=== PATIENT | male | born 1990 | race Caucasian/White ===

== ENCOUNTER 2018-01-13 15:25 | Emergency (ER) | payer BC, OTHER ==
[2018-01-13 15:48] VITALS: BP 127/74
[2018-01-13] MEDS ORDERED: Ibuprofen TAB* 600 MG PO ONE (15:59)
--- NOTE | 2018-01-13 16:00 | UC ---
Upper Extremity HPI - HPI Summary HPI Summary: pt was involved in a restraint about 2pm while at work. when they fell forward, pt injured his R wrist. notes pain and swelling to the back of his R wrist. - History of Current Complaint Onset/Duration: Sudden Onset Pain Intensity: 5 Aggravating Factor(s): Movement Alleviating Factor(s): Nothing Associated Signs And Symptoms: Positive: Swelling <Mary Trevino - Last Filed: 01/13/18 15:52> <Chantel Garcia - Last Filed: 01/13/18 17:05> - History of Current Complaint Chief Complaint: UCUpperExtremity Stated Complaint: RT WRIST COMP Time Seen by Provider: 01/13/18 15:44 - Allergies/Home Medications Allergies/Adverse Reactions: Allergies Allergy/AdvReac Type Severity Reaction Status Date / Time seasonal Allergy Congestion Uncoded 01/13/18 15:44 Home Medications: Home Medications NK [No Home Medications Reported] 01/13/18 [History Confirmed 01/13/18] PMH/Surg Hx/FS Hx/Imm Hx Previously Healthy: Yes - Surgical History Surgical History: Yes Surgery Procedure, Year, and Place: left knee MCL and PCL - Family History Known Family History: Positive: None, Respiratory Disease - Social History Occupation: Employed Full-time Lives: With Family Alcohol Use: Occasionally Substance Use Type: None Smoking Status (MU): Light Every Day Tobacco Smoker Type: Cigarettes Amount Used/How Often: one can per week When Did the Patient Quit Smoking/Using Tobacco: 1-3 PER DAY Household Exposure Type: Cigarettes - Immunization History Most Recent Influenza Vaccination: NO Vaccination Up to Date: Yes <Mary Trevino - Last Filed: 01/13/18 15:52> Review of Systems Constitutional: Negative Skin: Negative Eyes: Negative ENT: Negative Respiratory: Negative Cardiovascular: Negative Gastrointestinal: Negative Genitourinary: Negative Motor: Negative Neurovascular: Negative Musculoskeletal: Other: - pain and swelling R wrist Neurological: Negative Psychological: Negative Is Patient Immunocompromised?: No All Other Systems Reviewed And Are Negative: Yes <Mary Trevino - Last Filed: 01/13/18 15:52> Physical Exam Triage Information Reviewed: Yes Vital Signs: Initial Vital Signs Temp 98.3 F 01/13/18 15:45 Pulse 82 01/13/18 15:45 Resp 18 01/13/18 15:45 BP 127/74 01/13/18 15:45 Pulse Ox 98 01/13/18 15:45 Vital Signs Reviewed: Yes Eyes: Positive: Conjunctiva Clear ENT: Positive: Normal ENT inspection Neck: Positive: Supple, Nontender, No Lymphadenopathy Respiratory: Positive: Lungs clear, Normal breath sounds Cardiovascular: Positive: RRR, No Murmur Abdomen Description: Positive: Nontender, No Organomegaly, Soft Bowel Sounds: Positive: Present Musculoskeletal: Positive: Other: - RUE: R dorsal wrist with mild swelling and tenderness. Snuff box non tender. Hand non tender. s/v/m intact to the hand. Rest of extremity is atraumatic. Neurological: Positive: Alert Psychological: Positive: Age Appropriate Behavior <Mary Trevino - Last Filed: 01/13/18 15:52> Vital Signs: Initial Vital Signs Temp 98.3 F 01/13/18 15:45 Pulse 82 01/13/18 15:45 Resp 18 01/13/18 15:45 BP 127/74 01/13/18 15:45 Pulse Ox 98 01/13/18 15:45 <Chantel Garcia - Last Filed: 01/13/18 17:05> Diagnostics - Radiology No standard instances Xray Interpretation: Positive (See Comments) - sts, no fx Radiology Interpretation Completed By: Radiologist <Mary Trevino - Last Filed: 01/13/18 15:52> Upper Extremity Course/Dx - Course Course Of Treatment: no concern for infection and no fx. will tx for sprain - Differential Dx/Diagnosis Provider Diagnoses: Sprain R wrist <Mary Trevino - Last Filed: 01/13/18 15:52> Discharge - Sign-Out/Discharge Documenting (check all that apply): Discharge - Billing Disposition and Condition Condition: STABLE Disposition: HOME <Mary Trevino - Last Filed: 01/13/18 15:52> - Billing Disposition and Condition Condition: STABLE Disposition: HOME <Chantel Garcia - Last Filed: 01/13/18 17:05> - Discharge Plan Condition: Stable Disposition: HOME Patient Education Materials: Wrist Sprain (ED) Forms: *Work Release Referrals: Julian Rizvi MD [Medical Doctor] - 5 Days Additional Instructions: WEAR SPLINT UNTIL CLEARED BY ORTHOPEDICS Attestation Statement User Type: Provider - I was available for consult. This patient was seen by the [facility]. The patient was not presented to, seen by, or examined by me. -Kamron <Chantel Garcia - Last Filed: 01/13/18 17:05>
--- NOTE | 2018-01-13 16:32 | RAD ---
INDICATION: Ulnar aspect RIGHT wrist pain following injury. COMPARISON: July 26, 2005 TECHNIQUE: AP, lateral, and oblique views RIGHT wrist. REPORT: Normal articular alignment and preserved joint spaces. No cortical disruption or suspicious trabecular irregularity to suggest fracture. Mild nonfocal soft tissue swelling. IMPRESSION: Mild nonfocal soft tissue swelling without additional finding.
== END 2018-01-13 17:04 | disposition home or self-care (01) ==
LOC: UCCORT 15:25
DX: S63.501A Unspecified sprain of right wrist, initial encounter (principal); X58.XXXA Exposure to other specified factors, initial encounter; Y92.9 Unspecified place or not applicable; F17.210 Nicotine dependence, cigarettes, uncomplicated
CPT/HCPCS: 99213; A9270-GY; G0463